=== PATIENT | male | born 1950 | race Caucasian/White ===

== ENCOUNTER 2018-10-30 01:48 | Inpatient (IN) | payer OTHER ==
[2018-10-30] VITALS (8 sets, daily range): BP systolic 86–106; BP diastolic 55–75
[~2018-10-30] VITALS: Ht 177.8 cm; Wt 70.3 kg
--- NOTE | 2018-10-30 02:00 | NUR ---
MD JOHN AT BEDSIDE FOR MSE
--- NOTE | 2018-10-30 02:05 | NUR ---
SHARIF YOUNGBLOOD AT BEDSIDE FOR IV ATTEMPTS
--- NOTE | 2018-10-30 02:11 | NUR ---
PT HAS DNR AND IS IN CUSTODY.
--- NOTE | 2018-10-30 02:12 | NUR ---
PT BIB PARAMEDICS FOR C/O BODYACHES AND SOB. PT HAS EXTENSIVE HX OF DIABETES, HTN, HIGH CHOLESTEROL, NEPHRECTOMY IN JUL 2018. NEPHROSTOMY BAG IN PLACE. PT HAS G TUBE IN LUQ. PT WAS AT HOSPITAL FOR SEPTIC SHOCH, ENCEPHALOPATHY, AND COLITITS AND WAS DISCHARGED BACK TO THE ALF ON 10/25 WITH ABX. THEY STATE HE WAS PLACED ON HOSPICE CARE UPON DISCHARGE. PT HAD KIDNEY REMOVED DUE TO METASTATIC CANCER. PT ALSO HAS HX OF AFIB. PT STATES THE CHRONIC BODY PAIN IS ALWAYS THERE FROM THE CANCER AND THAT ITS NOT WORSE THAN USUAL. PT HAS CLEAR BUT DIMINISHED BREATHE SOUNDS BILATERALLY. PT SKIN IS COOL AND PALE AND DRY. PT HAS WEAK PULSES IN BILATERAL UPPER EXTREMETIES. PT HAS WEAK PULSES IN DISTAL BILATERAL LOWER EXTREMETIES. BL LE ARE BROWN AND CRACKED WITH MULTIPLE ABRASIONS NOTED. BANDAGE TO R INNER FOOT. PT IS IN HANDCUFFS, AND AROUND THE FEET WELL. PT STATES THAT THE OXYGEN IS BURNING HIS NOSE. PT IS ALERT AND ORIENTED TO PERSON, YEAR, SITUATION, BUT NOT LOCATION. PT IS SPEAKING IN CLEAR FULL, BUT SLOW SENTENCES. PT HAS EQUAL AND UNLABORED CHEST RISE. PT FEELS COOL TO THE TOUCH. NO DISTRESS NOTED AT THIS TIME. CARIDAC MONITORS AND PLETH OX IN PLACE. GUARDS AT BEDSIDE.
--- NOTE | 2018-10-30 02:23 | NUR ---
LAB AT BEDSIDE AND GERIATRIC NURSE BORIS AT BEDSIDE FOR EKG
--- NOTE | 2018-10-30 02:32 | NUR ---
3 UNSUCCESSFUL IV ATTEMPTS BY FORD OLGUIN. 2 UNSUCCESSFUL ATTEMPTS BY HOWARD OLGUIN. SEVERAL UNSUCCESSFUL IV ATTEMPTS BY PARAMEDICS IN ROUTE. MD JOHN MADE AWARE AND WILL LOOK FOR AN ULTRASOUND IV
--- NOTE | 2018-10-30 02:38 | NUR ---
X RAY AT BEDSIDE
[2018-10-30 02:43] LABS: BASOPHIL % 0.7 % (0-2)
[2018-10-30 02:45] LABS: PLATELET COUNT 423 x10^3mcL (130-400); RED CELL DISTRIBUTION WIDTH 22.8 % (11.5-14.5)
--- NOTE | 2018-10-30 02:47 | NUR ---
MD JOHN AT BEDSIDE LOOKING FOR IV
[2018-10-30 02:49] LABS: CALCIUM 7.3 mg/dL (8.5-10.1); CARBON DIOXIDE 25.9 mmol/L (21-32); CREATININE SERUM 1.3 mg/dL (0.7-1.3); POTASSIUM SERUM 3.8 mmol/L (3.5-5.1)
--- NOTE | 2018-10-30 02:50 | NUR ---
PT WAS CHANGED INTO GOWN AND SKIN CHECKED. MULTIPLE SCABS ON PENILE SHAFT VISIBLE ALL HEALING AND SCABBED. THEY ARE CLOSED AND INTACT. PT HAS CLEAR SKIN TO THE BACK. NO REDNESS OR BREAKDOWN NOTED ON BACK OR SACRAL AREA
[2018-10-30 02:53] LABS: BILIRUBIN TOTAL 0.35 mg/dL (0.20-1.00); TOTAL PROTEIN, SERUM 6.3 g/dL (6.4-8.2)
[2018-10-30 02:54] LABS: ALBUMIN 1.7 g/dL (3.4-5.0)
[2018-10-30 02:57] LABS: acanthocyte (spur cell) 1+; ovalocyte/elliptocyte 1+; rbc morphology (normal/abnorm) ABNORMAL (NORMAL)
--- NOTE | 2018-10-30 03:38 | NUR ---
PT PROVIDED WARM BLANKETS FOR COMFORT AND REPOSITIONED. PT LIGHTS TURNED OFF. INCREASED BP OBSERVED AFTER 1/2 FLUID BOLUS IN. WILL CONTINUE TO MONITOR. OFFICERS AT BEDSIDE
--- NOTE | 2018-10-30 03:52 | NUR ---
PT REFUSED URINARY STRAIGHT CATHETER. MADE AWARE. NO NEW ORDERS AT THIS TIME
--- NOTE | 2018-10-30 04:09 | NUR ---
PT ATTEMPTING TO PROVIDE URINE SAMPLE AT THIS TIME AFTER COMPLETION OF L OF FLUID
--- NOTE | 2018-10-30 04:52 | NUR ---
PT CLEANED UP AFTER LIQUID BROWN BM X 1. BLANCHABLE REDNESS TO SACRAL AREA.
[2018-10-30] MEDS ORDERED: AMITRIPTYLINE H50 MG PO (05:11)
[2018-10-30] MEDS ORDERED: TOPROL XL25 MG PO (05:12)
[2018-10-30] MEDS ORDERED: ISOSORBIDE MONO30 MG PO (05:13)
[2018-10-30] MEDS ORDERED: FLOMAX0.4 MG PO (05:13)
[2018-10-30] MEDS ORDERED: ATORVASTATIN CA40 M1 PO (05:14)
[2018-10-30] MEDS ORDERED: GOOD SENSE OMEP20 MG PO (05:14)
[2018-10-30] MEDS ORDERED: METFORMIN HYDR500 M1 PO (05:14)
[2018-10-30] MEDS ORDERED: ELIQUIS5 MG PO (05:14)
--- NOTE | 2018-10-30 05:16 | NUR ---
attempted to call report. kerline states she is giving meds and will call back
--- NOTE | 2018-10-30 05:32 | NUR ---
REPORT CALLED TO ERICKA OLGUIN
--- NOTE | 2018-10-30 05:37 | NUR ---
PATIENT ARRIVED ONTO THE UNIT FROM ED VIA [facility]ERNEY ACCOMPANIED BY ED STAFF AND NURSE. C/O BODY ACHES, LOW BP AND O2, TACHY, AND INTERMITTENT CONFUSION. DX WITH HYPOXIA AND PNA. A/OX2 TO PERSON AND PLACE, CONFUSED AT TIMES. SPEECH IS CLEAR, ABLE TO MAKE NEEDS KNOWN. ABLE TO FOLLOW COMMANDS. BREATHING IS EVEN. NO RESP DISTRESS OR SOB NOTED. DIM LUNG SOUNDS ON THE BASES. DENIES CHEST PAIN. C/O 7/10 BODY ACHES. PULSES ARE WEAK (RADIAL AND PEDIAL). EXTREMITIES ARE COLD/DRY TO TOUCH. IV TO THE LFA, 20G. SL. PATENT AND INTACT. NO REDNESS OR SWELLING NOTED. GTUBE NOTED ON THE LEFT ABD. NEPHROSTOMY TUBE NOTED TO THE RIGHT SIDE OF THE ABD WITH NO OUTPUT. PATIENT STATES HE VOIDS WELL, URINAL AT BEDSIDE. LEFT EYEBROW HEALING LACERATION WITH STERI-STRIPS, CDI NOTED. RASHMI KNEE SCABS AND DISCOLORATION. BLE DISCOLORATION AND DRYNESS NOTED. BLANCHABLE REDNESS TO BUTTOCK/COCCYX NOTED, OPTIFOAM PLACED, CDI. PATIENT STATED HE HAS THOUGHOUTS OF HURTING HIMSELF. STATED "OF COURSE I DO, EVERY SINCE I GOT LOCKED UP." PATIENT DENIES PLAN AT THIS TIME. GUARDS AT BEDSIDE. ORIENTED PATIENT TO ROOM AND CALL LIGHT SYSTEM. COMFORT AND SAFETY MEASURE MAINTAINED. BED IS LOCKED AND IN THE LOWEST POSITION. SIDE RAILS UP X2. CALL LIGHT IS WITHIN REACH. WILL ENDORSE CARE TO DAY SHIFT RN
--- NOTE | 2018-10-30 07:40 | NUR ---
RECEIVED PT IN NO ACUTE DISTRESS. RESTING IN BED WITH EYES CLOSED BUT AROUSABLE. RESP EVEN AND UNLABORED ON RA AT THIS TIME. NO PAIN NOTED. IV TO VIK, NO REDNESS OR SWELLING NOTED. 2 CIM STAFF AT BEDSIDE. BED IN LOW POSITION, CALL LIGHT WITHIN REACH. WILL CONTINUE TO MONITOR.
--- NOTE | 2018-10-30 08:47 | NUR ---
PT'S BP 87/56 (MAP 66). ALSO SPOT CHECKED PT'S BLOOD GLUCOSE = 61. REPEAT = 62. PT SLIGHTLY DROWSY. DR. FINK NOTIFIED, RECEIVED TELEPHONE ORDER FOR ONE TIME IV BOLUS OF 500 ML NS. ALSO RECEIVED ORDER TO GIVE D50W FOR LOW BLOOD SUGAR, ACHS CHECKS, INSULIN SLIDING SCALE, AND REGULAR DIET. ORDERS READ BACK AND WILL BE CARRIED OUT.
--- NOTE | 2018-10-30 10:12 | NUR ---
RECHECKED BLOOD GLUCOSE = 89. PT MORE AWAKE, ASSISTED WITH EATING BREAKFAST AT THIS TIME. PT GIVEN OJ WITH 5 PACKETS OF SUGAR. WILL RECHECK BLOOD GLUCOSE AFTER 15 MINS.
--- NOTE | 2018-10-30 10:23 | NUR ---
BLOOD SUGAR 113, PT EATING BREAKFAST, TOLERATING WELL. DENIES N/V. AA/OX4. NO BENNETT. NO DIZZINESS. NO SOB. RR EVEN/UNLABORED. NO S/S OF ACUTE DISTRESS. CIM GUARDS AT BEDSIDE. BED IN LOW POSITION. CALL LIGHT WITHIN REACH. WILL ENDORSE TO PRIMARY RN MAX.
--- NOTE | 2018-10-30 11:50 | NUR ---
PATIENT REFUSED ECHOCARDIOGRAM -STATES THE DOCTORS KNOW HE HAS AN IRREGULAR RHYTHM-DOES NOT WANT IT
--- NOTE | 2018-10-30 13:11 | NUR ---
PT RESTING IN BED. NO ACUTE DISTRESS. SLEEPING BUT AROUSABLE. BREATHING EVEN AND UNLABORED ON 2L NC. R NEPHROSTOMY BAG WITH NO OUTPUT. PT STATES HE USES URINAL, NO URGE TO VOID AT THIS TIME. TOLERATED BREAKFAST WELL. CIM STAFF AT BEDSIDE. IV TO VIK WITH NO REDNESS OR SWELLING. CALL LIGHT WITHIN REACH. WILL CONTINUE TO MONITOR.
--- NOTE | 2018-10-30 13:11 | NUR ---
PT RESTING IN BED. NO ACUTE DISTRESS. SLEEPING BUT AROUSABLE. BREATHING EVEN AND UNLABORED ON 2L NC. RUQ T-TUBE DRAIN WITH NO OUTPUT. PT STATES HE USES URINAL, NO URGE TO VOID AT THIS TIME. TOLERATED BREAKFAST WELL. CIM STAFF AT BEDSIDE. IV TO VIK WITH NO REDNESS OR SWELLING. CALL LIGHT WITHIN REACH. WILL CONTINUE TO MONITOR.
--- NOTE | 2018-10-30 13:55 | NUR ---
DR. DEL ANGEL AT BEDSIDE, AWARE PT REFUSED ECHO.
--- NOTE | 2018-10-30 15:44 | NUR ---
PT HAD LARGE LOOSE BM, CLEANED AND REMINDED PT TO TURN AND REPOSITION IN BED. PT VERBALIZED UNDERSTANDING. CALL LIGHT WITHIN REACH. CIM STAFF AT BEDSIDE. WILL CONTINUE TO MONITOR.
[2018-10-30 16:36] LABS: microscopic required? YES; urine erythrocyte NEGATIVE (NEGATIVE)
--- NOTE | 2018-10-30 18:42 | NUR ---
PT SITTING UP IN BED EATING DINNER. NO ACUTE DISTRESS. BREATHING EVEN AND UNLABORED ON 2L NC. PT TOLERATING CCHO DIET WELL, NO COUGHING OR CHOKING NOTED AT THIS TIME. IVF INFUSING, NO REDNESS OR SWELLING TO VIK IV SITE. G TUBE IN PLACE. CHOLECYSTOSTOMY TO RUQ WITH NO DRAINAGE. VOIDING USING URINAL. FALL PRECAUTIONS. BED IN LOW POSITION, CALL LIGHT WITHIN REACH. CIM STAFF AT BEDSIDE. WILL ENDORSE TO ONCOMING SHIFT.
--- NOTE | 2018-10-30 19:10 | NUR ---
PT RECEIVED A/O X3 WITH EPISODES OF FORGETFULNESS, ABLE TO MAKE NEEDS KNOWN AND FOLLOW SIMPLE COMMANDS. TELE #4, DENIES CP/PRESSURE. WEAK PEDAL PULSES, NO EDEMA PRESENT. LUNG SOUNDS DIM TO RASHMI BASES, BREATHING IS EVEN AND UNLABORED ON AND OFF 2L NC/RA, DENIES SOB, NO RESP DISTRESS NOTED. ABD SOFT AND NONDISTENDED, BOWEL TONES ACTIVE X4 QUAD, DENIES N/V. GTUBE IN PLACE TO LUQ, CLAMPED, DRSG CDI. PER PT, "IT'S NOT BEING USED RIGHT NOW." CHOLECYSTOSTOMY TUBE TO RIGHT SIDE OF ABD, DRSG CDI, NO OUTPUT NOTED IN DRAINAGE BAG. VOIDS FREELY, URINAL AT BEDSIDE. GENERALIZED WEAKNESS, WHEELCHAIR AT BASELINE. STERISTRIPS TO LT EYEBROW, CDI. SCABS AND DISCOLORATION TO BLE. BLANCHABLE REDNESS TO BUTTOCKS, ZGUARD IN PLACE. PT DENIES ANY PAIN AT THIS TIME. IVF INFUSING WELL TO VIK, SITE FREE FROM REDNESS OR SWELLING. BED IN LOWEST SETTING, SIDE RAILS UP X2, CALL LIGHT WITHIN REACH. GUARD AT BEDSIDE, WILL CONT TO MONITOR.
--- NOTE | 2018-10-30 21:50 | NUR ---
DUE MEDS GIVEN, ASPIRATION PRECAUTIONS IN PLACE, PT TOLERATED WELL. NO COUGHING OR DISTRESS NOTED AFTER PT SWALLOWED PILLS. PT STATES, "I ONLY TAKE TWO MEDS AT A TIME." PT ALSO STATES, "BACK AT THE INSTITUTION, I AM ABLE TO EAT SOLID FOODS." NO ACUTE DISTRESS NOTED. CALL LIGHT WITHIN REACH. WILL CONT TO MONITOR.
--- NOTE | 2018-10-30 22:38 | NUR ---
PT INCONTINENT OF STOOL, DARK BROWN AND LOOSE. PT CLEANED AND REPOSITIONED. NO ACUTE DISTRESS NOTED. WILL CONT TO MONITOR.
--- NOTE | 2018-10-31 00:08 | NUR ---
DR THORNTON AT BEDSIDE FOR CONSULT, UPDATED DOCTOR. ALL QUESTION AND CONCERNS ADDRESSED. ORDERS RECEIVED.
--- NOTE | 2018-10-31 01:22 | NUR ---
PT RESTING IN BED WITH EYES CLOSED, BUT IS EASILY AROUSABLE. BREATHING IS EVEN AND UNLABORED, NO RESP DISTRESS NOTED. PT DENIES HAVING ANY PAIN AT THIS TIME. RBS-85, JUICE GIVEN. IVF INFUSING WELL, SITE WNL. NO ACUTE DISTRESS OBSERVED. BED ALARM ON, CALL LIGHT WITHIN REACH. GUARD AT BEDSIDE. WILL CONT TO MONITOR.
[2018-10-31 01:36] VITALS: BP 100/65
[2018-10-31 06:05] VITALS: BP 108/70
--- NOTE | 2018-10-31 07:20 | NUR ---
RECIEVED PT FROM NIGHT NURSE. PT IS LAYING DOWN IN BED WITH HOB UP. ECHO BEING COMPLETED AT BEDSIDE AT THIS TIME. PT LOOKS TO BE IN NO ACUTE DISTRESS AT THIS TIME. G TUBE AND CHOLECYSTOSTOMY PRESENT, DRESSING DRY AND INTACT WITH NO DRAINAGE PRESENT. IV SITE IS PATENT WITH NO SIGNS OF ERYTHEMA OR SWELLING, IV FLUIDS INFUSING. GUARD AT BEDSIDE. BED IN LOWEST POSITION. CALL LIGHT WITHIN REACH. WILL CONTINUE TO MONITOR.
--- NOTE | 2018-10-31 07:36 | NUR ---
PT SLEPT WELL THROUGHOUT THE EVENING. BREATHING IS EVEN AND UNLABORED, NO RESP DISTRESS NOTED. PT DENIES ANY PAIN AT THIS TIME. GTUBE IN PLACE. CHOLECYSTOSTOMY IN PLACE, NO OUTPUT NOTED. IVF INFUSING WELL TO VIK, SITE WNL. NO ACUTE CHANGES ENCOUNTERED DURING SHIFT. ALL NEEDS MET. GUARD AT BEDSIDE. CONTINUITY OF CARE ENDORSED TO THIERRY OLGUIN, ALL QUESTIONS AND CONCERNS ADDRESSED.
[2018-10-31 08:20] VITALS: BP 91/60
[2018-10-31 10:49] LABS: BASOPHIL % 0.2 % (0-2); PLATELET COUNT 368 x10^3mcL (130-400)
[2018-10-31 11:05] LABS: ALKALINE PHOSPHATASE 94 U/L (46-116); ALT/SGPT 19 U/L (16-63); AST/SGOT 16 U/L (15-37); BILIRUBIN TOTAL 0.34 mg/dL (0.20-1.00); CARBON DIOXIDE 25.7 mmol/L (21-32); CHLORIDE SERUM 104 mmol/L (98-107); CREATININE SERUM 0.9 mg/dL (0.7-1.3); GFR1 > 60 mL/min; GLUCOSE SERUM 86 mg/dL (74-106); SODIUM SERUM 139 mmol/L (136-145)
[2018-10-31 11:21] LABS: ALBUMIN 1.9 g/dL (3.4-5.0)
[2018-10-31 11:22] LABS: POTASSIUM SERUM 2.9 mmol/L (3.5-5.1)
[2018-10-31 11:38] VITALS: Ht 177.8 cm; Wt 70.3 kg
[2018-10-31 12:00] VITALS: BP 99/61
--- NOTE | 2018-10-31 12:52 | NUR ---
1. Recommend CCHO diet per MD orders. 2. Discontinue Ensure BID. (Pt dislikes ONS, and declined when RD offered) 3. Recommend MVI and megace QD.
--- NOTE | 2018-10-31 12:52 | NUR ---
Initial Nutrition Assessment- Dx: Hypoxia, PNA, Delirium PMHx: Renal Cell Cancer, CAD, HTN, DM, Atrial Fibrillation PSHx: nephrectomy Labs: Alb 1.7L, Ca 7.3L, HgA1c 7.3H, WBC 11.5H, H/H 11.6L/35L Meds: Ativan, Eliquis, D50%W, Humulin, Lipitor, Diet: CCHO diet w/ Ensure Plus 1 can BID x 1 day PO Intake: no record since admission. Pt currently on NPO per RN. Ht: 5'10 Wt: 155 lb, 70 kg BMI: 22.2 kg/m2 (Normal) IBW: 166 lb, 75 kg %IBW: 93 UBW: 160 lb Age: 67 yrs old/Male Food Allergies: NKFA Skin: Left Eyebrow w/ laceratioin, Bilateral knee w/ dry scab, abrasion, BLE w/ discoloration, blanchable redness to coccyx. Tono: 14 Edema: none GI: abd soft/flat, w/ active bowel sounds. Last BM 10/30/18, semi-liquid. Pt seen resting in bed w/ 1 guard at bedside. Pt reported of poor to fair appetite for 1 month now. He also reported 5 lb wt loss in 3 months. Pt also reported some difficulty chewing d/t dry mouth, RD offered saucy/moist foods. RD endorsed food preference in [employer]. Pt declined ONS when RD offered. RD encouraged pt to increase PO intake. Pt verbalized understanding. Pt is not yet meeting adequate nutrition but diet order remains appropriate. RD awaiting call back from MD for rec. Problem with: N: no V: no D: no C: no Problems with: Chewing: yes Swallowing: no Current appetite: poor-fair Recent wt change: 5 lb wt loss %wt change: 3% Vitamin/Supplement use: none Special diet at home: none Physical activity: none, pt w/ generalized weakness and uses a wheelchair Education: pt notified of current [facility] diet and was given diet restrictions. Pt denies any further education at this time. Estimated Nutritional Needs Based on actual body weight 70 kg Energy: 0917-9531 kcal/d (30-35 kcal/kg-for sepsis/Cancer) Protein: 105-140 g/d (1.5-2g/kg for sepsis) Fluid: 2274-5843 ml/d (1 ml/kcal-fluid balance) or per doctor Nutrition Diagnosis 1. Increased nutrient needs r/t metabolic demands AEB estimated calorie and protein needs for sepsis. Intervention 1. Recommend CCHO diet per MD orders. 2. Discontinue Ensure BID. 3. Recommend MVI and megace QD. Monitor/Evaluate Goal: PO intake at least 75% of estimated needs Monitor: PO intake, Labs, GI function F/U in 2-3 days as high risk 11/02-11/03
--- NOTE | 2018-10-31 13:14 | NUR ---
PT IS SITTING UP IN BED EATING DINNER. PT LOOOKS TO BE IN NO ACUTE DISTRESS AT THIS TIME. PT STATES WILL BE NEEDING PAIN MEDICATION SOON BUT NOT AT THIS TIME YET. BED IN LOWEST POSITION. IV SITE IS PATENT WITH NO SIGNS OF ERYTHEMA OR SWELLING, IV FLUIDS INFUSING. CALL LIGHT WITHIN REACH. GUARD AT BEDSIDE. WILL CONTINUE TO MONITOR.
--- NOTE | 2018-10-31 15:05 | NUR ---
PT COMPLAINING OF GENERALIZED PAIN 02/24. WILL MEDICATION PT ACCORDING TO EMAR. BED IN LOWEST POSITION. GUARD AT BEDSIDE. WILL CONTINUE TO MONITOR.
[2018-10-31 17:00] VITALS: BP 107/74
--- NOTE | 2018-10-31 18:56 | NUR ---
PT IS LAYING DOWN IN BED WITH HOB UP. RESPRIATIONS EVEN AND UNLABORED ON ROOM AIR. PT LOOKS TO BE IN NO ACUTE DISTRESS AT THIS TIME. IV SITE PATENT WITH NO SIGNS OF ERYTHEMA OR SWELLING. BED IN LOWEST POSITION. CALL LIGHT WITHIN REACH. WILL ENDORSE TO ONCOMING SHIFT.
--- NOTE | 2018-10-31 19:30 | NUR ---
RECEIVED PT IN BED RESTING. NO ACUTE RESPIRATORY DISTRESS NOTED.DENIES ANY PAIN AT THIS TIME.IVF INFUSING WELL.BED IN LOWEST POSITION,CALL LIGHT WITHIN REACH. WILL CONTINUE TO MONITOR.
--- NOTE | 2018-11-01 00:41 | NUR ---
PT ASLEEP. DENIES CP. BP: 99/59, HR:81 O2SAT 97% RA. WILL CONTINUE TO MONITOR.
--- NOTE | 2018-11-01 05:19 | NUR ---
P ASLEEP BUT EASILY AROUSABLE.NO SOB NOTED.NO C/O PAIN AT THIS TIME. BED IN LOWEST POSITION,CALL LIGHT WITHIN REACH. WILL CONTINUE TO MONITOR.
[2018-11-01 05:32] VITALS: BP 103/65
--- NOTE | 2018-11-01 06:42 | NUR ---
PT REFUSED LAB DRAW.
--- NOTE | 2018-11-01 07:26 | NUR ---
CARE ENDORSED TO DAY NURSE FORTINO.
--- NOTE | 2018-11-01 08:00 | NUR ---
RECIEVED PATIENT ALERT AND ORIENTED WITH DIMINISHED BREATH SOUNDS AND EATTING BREAKFAST AT THIS TIME. PATINET HAS GENERAL WEAKNESS AND IS WITH ASSIST INDICATED. URINATING WITH URINAL AND THE GUARDS AT BEDSIDE AND SECURITY MAINTAINED. DENIES PAIN AT THIS TIME AND HAS NO COMPLAINTS OF NAUSEAS. PATIENT WITH OLD G TUBE THAT IS CLAMPED AND A COLOSTOMY BAG IN PLACE. VITALS AT THIS TIME AT 99.3, 93, 18, 106/65, 95% ON ROOM AIR, PATIENT WITH HISTORY OF HTN, CAD, DM, AFIB, RENAL CELL CANCER, S/P NEPHRETOMY, CHRONIC LOW BACK PAIN AND SEPSIS. PATIENTHAS NOTED LBA FO H AHD OF 109/33, CA AT 7.0, AND ALBUMIN AT 6.2, AN XRAY OF THE CHEST ERESIDUAL ATELECTASIS AND OR FLUID AT THE LEFT LUNG BASE. NO COUGH AT THIS TIME AND ENCOURAGE TO DEEP BREATH OFTEN.
[2018-11-01 10:07] VITALS: BP 90/57
[2018-11-01 10:42] LABS: CALCIUM 6.8 mg/dL (8.5-10.1); CARBON DIOXIDE 26.2 mmol/L (21-32); CHLORIDE SERUM 106 mmol/L (98-107); CREATININE SERUM 0.9 mg/dL (0.7-1.3); GFR1 > 60 mL/min; GLUCOSE SERUM 88 mg/dL (74-106); SODIUM SERUM 138 mmol/L (136-145)
--- NOTE | 2018-11-01 11:33 | NUR ---
DOWN FOR T TUBE EXAM IN RADIOLOGY AT THIS TIME PATIENT HAD A SMALL STOOL AND WAS CLEANSED PRIOR TO TRANSFER. PATIENT SHOWS WEAKNESS AND NEEDED MODERATE TO MAX ASSIST TO GET TO THE WHEELCHAIR. AWAIING ARRIVAL BACK TO E FLOOR TO COMPLETE HIS VANCO INDICATED
--- NOTE | 2018-11-01 12:02 | NUR ---
RECEIVED POST THE CHOLANGIOGRAM OF THE T TUBE AND CALLED BACK CT WHO WANTS TO TO DO THE CT AND THEY CAME AND TOOK THE PATIENT FOR THE PROCEDURE. PATIENT IS SO FAR TOLERATEING WELL. GUARD AT BEDSIDE AND SECURITY HAS BEEN MAINTAINED.
[2018-11-01 13:04] VITALS: BP 116/76
[2018-11-01 17:24] VITALS: BP 96/63
--- NOTE | 2018-11-01 17:25 | NUR ---
PATIENT HAS BEEN ANXIOUS ON AND OFF ABOUT GOING OM TNE BEDPANA AND I NO ENTHUSIASTC ABOU TTHE BOWEL MEDIACTION AND STATES HE HAS HAD ENOUGH STOOL NOW. HE IS REFUSING THE MIRALAX ORDERED PATIENT DOES NOT WANT TO HAVE ANY FUTHER DIARRHEA AT THIS TIME. THE IV FLUIDS RUNNING WITH POTASSIUM AND THE PATIENT HAS BEEN TOLERATING WELL.
--- NOTE | 2018-11-01 18:39 | NUR ---
PATIENT REQUESTED PAIN MEDICATION AND GAVE MORPINE 1MG AND THE EIGHTEEN HUNDRED DOSING. WILL MONITO FOR EFFECTIVENESS. ATIENT AHS DISCOLORATION AND FLAKEY APPEARANCE TO THE LOWER EXTREMITES THE APPEARANCE OF POOR BLOOD BLOW NOTED. ADJUST THE SHACKLE PER THE PATIENT REQUEST.
--- NOTE | 2018-11-01 19:30 | NUR ---
RECEIVED PT FROM DAY SHIFT RN. PT IS AA&O X4 AND ABLE TO FOLLOW COMMANDS. PT RESTING IN BED. DENIES CHEST PAIN OR SHORTNESS OF BREATH ON ROOM AIR. NO USE OF ACCESSORY MUSCLE OR LABORED BREATHING ON ASSESSMENT. THERE IS LEFT ARM IV THAT IS CLEAN DRY AND INTACT AT THIS TIME. SAFETY MEASURES ARE IN PLACE. CALL LIGHT IS WITHIN REACH. WILL CONTINUE TO MONITOR.
[2018-11-01 20:51] VITALS: BP 97/60
--- NOTE | 2018-11-02 03:49 | NUR ---
PT RESTING IN BED WITH EYS CLOSED. NO FACIAL GRIMMACING. NO ACUTE SIGNS OF DISTRESS. NO LABORED BREATHING OR USE OF ACCESSORY MUSCLES. WILL MONITOR.
[2018-11-02 05:31] VITALS: BP 118/95
--- NOTE | 2018-11-02 06:32 | NUR ---
PT SLEPT THROUGHOUT THE NIGHT. PT DENIES ANY CHEST PAIN OR SHORTNESS OF BREATH AT THIS TIME. GUARD AT BEDSIDE. SAFETY MEASURES IN PLACE. WILL ENDORSE TO DAY SHIFT RN.
[2018-11-02 07:38] LABS: ALKALINE PHOSPHATASE 76 U/L (46-116); ALT/SGPT 13 U/L (16-63); AST/SGOT 19 U/L (15-37); BILIRUBIN TOTAL 0.3 mg/dL (0.20-1.00); CALCIUM 6.6 mg/dL (8.5-10.1); CARBON DIOXIDE 29.5 mmol/L (21-32); CHLORIDE SERUM 106 mmol/L (98-107); CREATININE SERUM 0.8 mg/dL (0.7-1.3); GFR1 > 60 mL/min; GLUCOSE SERUM 75 mg/dL (74-106); POTASSIUM SERUM 4.3 mmol/L (3.5-5.1); SODIUM SERUM 139 mmol/L (136-145)
[2018-11-02 07:39] LABS: BASOPHIL % 0.3 % (0-2); PLATELET COUNT 294 x10^3mcL (130-400)
[2018-11-02 07:40] LABS: ALBUMIN 1.3 g/dL (3.4-5.0); TOTAL PROTEIN, SERUM 5.1 g/dL (6.4-8.2)
[2018-11-02 07:41] LABS: RED CELL DISTRIBUTION WIDTH 24.1 % (11.5-14.5)
--- NOTE | 2018-11-02 08:00 | NUR ---
PATIENT RECIEVED ALERT AND ORIENTED AND SEEMS LESS CONFUSED TODAY. PATIENT WITH CLEAR BUT DIMINISHED BREATH SOUNDS AND PATIEN TAHS DISCOLORATION TO THE LOWER EXTREMITES. PATIENT HAS BEEN ON BEDREST AND IS WEAK AND WITH POOR ACTIVITY TOLERANCE. PATIENT REFUSD THE MIRALX THIS AM AND HAS BEEN HAVING LOOSE STOOLS. PATIVANESSA MORALESS BEEN IWTH AFIB AND AND BEEN WITH LOW BP AND HELD THE MEDICATIONS INDICATED DUE TO THIS. VITALS AT THIS TIME AT 97.7, 68, 18, 106/72, 99% ON ROOM AIR. PATIENT AHS BEEN WITH GUARD AT BEDSIDE AND SECURITY HAS BEEN MAINTAIN. =
[2018-11-02 08:20] LABS: ovalocyte/elliptocyte 1+; rbc morphology (normal/abnorm) ABNORMAL (NORMAL)
[2018-11-02 08:21] LABS: acanthocyte (spur cell) 1+; burr cell (echinocyte) 1+
[2018-11-02 10:17] VITALS: BP 106/72
--- NOTE | 2018-11-02 13:00 | NUR ---
TOLERATED DIET AND DENIES PAIN AT THIS TIME.
[2018-11-02 13:38] VITALS: BP 90/60
[2018-11-02 14:00] VITALS: BP 90/60
--- NOTE | 2018-11-02 14:35 | NUR ---
Follow-up Nutrition Assessment- Renzo Higgins Dx: Hypoxia, Pneumonia, Delirium Labs: Na 139, K 4.3, Alb 1.3L,Ca 6.6L, Hgb 10.1L, Hct 30L Meds: Dextrose 50% water Abbot, Flomax, Lanoxin, Lipitor, Miralax, Prilosec, Tums Diet: Regular PO intake: 10/3170-[id number], 10/31-Lunch CCHO-100%, 11/01-Breakfast Cardiac-40%, Dinner CCHO-40%, 11/02 Cardiac-100% Weights: 10/30-150-155#, 10/31-155# 11/02-Bed scale: 165# Skin: Wound w/ashlyn to the mid abdomen and some bruising Tono:14 Last BM: 11/01-2 BM Pt Visit: Pt was asleep when I entered the room. Global Supply Chain Director stated he had been aslepp for awhile. Only took a bed scale while in the room. Spoke with pt's RN Migdalia in order to gain some information about the patient. Nurse Migdalia stated that patient has PO intake of at least 50% and has no nausea, vomiting, constipation at this time. It was stated that he had a few loose stools. The nurse stated that his appetite is fair to good. The nurse states that when he is not feeling weak he will eat very well on his own. The nurse has not notice any weight changes. No education was given at this visit due to patient sleeping. Communication with Dr. Khurram Barrett: pt is currently on a regular diet, but due to A1c of 7.3 and history of diabetes recommended to change to [facility] diet and doctor was in agreement of diet change. Estimated Nutritional Needs based on Energy: 2100-2450kcal/kg (30-35kcal/kg) (based on sepsis and cancer) (Ongoing) Protein: 105-140g/kg (1.5-2.0g/kg) (based on sepsis) ( Ongoing) Fluid: 2100-2450ml/d (1ml/kcal-fluid balance) (Ongoing) Nutrition Diagnosis 1. Increased nutrient needs r/t metabolic demands aeb estimated calorie and protein needs for sepsis. (Ongoing) Intervention 1. Recommended changing the diet to [facility] Monitor/Evaluate Previous goal: PO intake at least 75% of estimated needs- has been met Goal: PO intake at least 75% of estimated needs Monitor: PO intake, Labs, GI function, tolerance of diet MR F/U 11/05-
--- NOTE | 2018-11-02 14:53 | NUR ---
Intervention 1. Recommended changing the diet to CCHO
--- NOTE | 2018-11-02 17:30 | NUR ---
PATIENT REQUESTED PAIN MEDICAITON AND GAVE MORPHINE FOR PAIN.WILL CONTINUE TO MONITOR FOR EFFECITVENESS.
[2018-11-02 18:11] VITALS: BP 96/63
--- NOTE | 2018-11-02 18:30 | NUR ---
PATIENT HAD GOOD RELIEF FROM THE MORPHINE AND IS RESTING QUIETLY AT THIS TIME.
--- NOTE | 2018-11-02 18:54 | NUR ---
PATIENT STATES HE HAS SOME RELIEF FROM THE HEARTBURN WITH ROSS GI COCKTAIL GIVEN. PATIEN TIS NOW ON PRILOSEC WELL. GAVE A DOSE OF MORPHINE OF FOR COMPLAINTS OF PAIN TO THE LOWER EXTREMITES. WILL CONTINUE TO MONITOR INDICATED.
--- NOTE | 2018-11-02 19:00 | NUR ---
RECEIVED PT FROM DAY SHIFT RN. PT IS AA&O X 4 AND ABLE TO FOLLOW COMMANDS. PT CURRENTLY RESTING IN BED WITH GUARD AT THE BEDSIDE. PT DENIES CHEST PAIN OR SHORTNESS OF BREATH AT THIS TIME ON ROOM AIR. THERE IS NO USE ACCESSORY MUSCLES OR LABORED BREATHING ON ASSESSMENT. IV CLEAN DRY AND INTACT AT THIS TIME. SAFETY MEASURES ARE IN PLACE. WILL CONTINUE TO MONITOR.
--- NOTE | 2018-11-02 19:04 | NUR ---
PATIENT RECIEVED ALERT AND ORIENTED AND SEEMS LESS CONFUSED TODAY. PATIENT WITH CLEAR BUT DIMINISHED BREATH SOUNDS AND PATIEN TAHS DISCOLORATION TO THE LOWER EXTREMITES. PATIENT HAS BEEN ON BEDREST AND IS WEAK AND WITH POOR ACTIVITY TOLERANCE. PATIENT REFUSD THE MIRALX THIS AM AND HAS BEEN HAVING LOOSE STOOLS. PATINET AHS BEEN IWTH AFIB AND AND BEEN WITH LOW BP AND HELD THE MEDICATIONS INDICATED DUE TO THIS. VITALS AT THIS TIME AT 97.7, 68, 18, 106/72, 99% ON ROOM AIR. PATIENT AHS BEEN WITH GUARD AT BEDSIDE AND SECURITY HAS BEEN MAINTAIN.
[2018-11-02 20:28] VITALS: BP 98/63
--- NOTE | 2018-11-03 03:39 | NUR ---
PT RESTING IN BED WITH EYES CLOSED. NO SIGNS OF DISTRESS OR FACIAL GRIMMACING NOTED. WILL CONTINUE TO MONITOR.
--- NOTE | 2018-11-03 05:16 | NUR ---
PT SLEPT THROUGHOUT THE SHIFT WITH GUARD AT BEDSIDE. PT DENIED CHEST PAIN OR SHORTNESS OF BREATH ON ROOM AIR. NO USE OF ACCESSORY MUSCLES OR LABORED BREATHING ON ASSESSMENT. SAFETY MEASURES ARE IN PLACE. WILL ENDORSE TO DAY SHIFT RN.
[2018-11-03 06:34] LABS: CALCIUM 6.9 mg/dL (8.5-10.1); CARBON DIOXIDE 27.8 mmol/L (21-32); CHLORIDE SERUM 107 mmol/L (98-107); GFR1 > 60 mL/min; GLUCOSE SERUM 81 mg/dL (74-106); SODIUM SERUM 140 mmol/L (136-145)
[2018-11-03 06:58] LABS: BASOPHIL % 0.5 % (0-2); PLATELET COUNT 288 x10^3mcL (130-400)
[2018-11-03 07:02] LABS: RED CELL DISTRIBUTION WIDTH 23.9 % (11.5-14.5)
--- NOTE | 2018-11-03 07:35 | NUR ---
RECEIVED PATIENT AWAKE/ALERT IN BED, NO ACUTE DISTRESS NOTED. PATIENT REPORT ALL OVER BODY PAIN AND 3/10 TOLERABLE. TELE #4 NOTED. IV TO VIK DRESSING LOOSENING, APPLIED NEW DRESSING AND SITE CDI. BILAT FOOT CUFFED TO BED NOTED. POC EXPLAINED. GUARD AT BEDSIDE. CALL LIGHT IN REACH.
[2018-11-03 09:00] VITALS: BP 101/66
--- NOTE | 2018-11-03 09:16 | NUR ---
PATIENT RESTING IN BED NO COMPLAIN, REPOSITION UP IN BED. HOB ELEVATED UPRIGHT. PO MEDS ADMINISTERED. BACTROBAN TO NASAL BILAT. PATIENT TOLERATED WELL. NEEDS ATTENDED. WILL BE BACK TO CLEAN PATIENT WITH HIBICLENS. PATIENT EATING HIS BREAKFAST. GUARD AT BEDSIDE.
--- NOTE | 2018-11-03 10:55 | NUR ---
PATIENT RESTING IN BED NO RESP DISTRESS NOTED, INCONT CARE PROVIDED FOR SMALL LOOSE BM, PATIENT ABLE TO TURN FROM SIDE TO SIDE TO HELP NURSE. INSTRUCT PATIENT TO STAY OM LT SIDE OFF BACK TO PREVENT SKIN BREAKDOWN, CALL LIGHT IN REACH. 1 GUARD REMAIN AT BEDSIDE.
[2018-11-03 11:34] VITALS: BP 101/66
[2018-11-03 12:32] VITALS: BP 114/62
--- NOTE | 2018-11-03 13:06 | NUR ---
PATIENT SAT UP IN BED EATING HIS DINNER, PO MEDS AND ZOSYN IVPB INFUSING TO VIK. HOTBED LEVER OPERATOR AT BEDSIDE PROVIDED JAM CARE TO PATIENT. DISCHARGE INSTRUCTION EXPLAINED TO PATIENT AND PATIENT SIGNED. PER GUARD ALREADY CALL FOR TRANSPORTATION, NO TIME YET. CALL LIGHT IN REACH.
--- NOTE | 2018-11-03 14:00 | NUR ---
PATIENT SITTING UP AT SIDE OF BED, REMOVED IV SITE TO VIK W/ CATHETER INTACT AND GAUZES APPLIED TO SITE. TELE #4 REMOVED AND GIVEN TO [place]. PATIENT BEING TRANSPORT BY 4 GUARDS WITH ALL BELONGINGS.
== END 2018-11-03 14:00 | disposition other institution (70) | DRG 871 ==
LOC: ED 01:48 → DU 04:18
PROVIDERS: Emergency Medicine; Internal Medicine; Internal Medicine Cardiovascular Disease; ADMIT Internal Medicine
DX: A41.9 Sepsis, unspecified organism (principal); J96.01 Acute respiratory failure with hypoxia; R65.21 Severe sepsis with septic shock; J69.0 Pneumonitis due to inhalation of food and vomit; C64.2 Malignant neoplasm of left kidney, except renal pelvis; C78.02 Secondary malignant neoplasm of left lung; N17.9 Acute kidney failure, unspecified; I10 Essential (primary) hypertension; Z66 Do not resuscitate; I48.91 Unspecified atrial fibrillation; N40.0 Benign prostatic hyperplasia without lower urinary tract symptoms; I25.10 Atherosclerotic heart disease of native coronary artery without angina pectoris; Z93.1 Gastrostomy status; Z90.5 Acquired absence of kidney; Z79.01 Long term (current) use of anticoagulants; Z79.84 Long term (current) use of oral hypoglycemic drugs; Z88.8 Allergy status to other drugs, medicaments and biological substances; E78.00 Pure hypercholesterolemia, unspecified; Z90.49 Acquired absence of other specified parts of digestive tract; D63.8 Anemia in other chronic diseases classified elsewhere; E66.01 Morbid (severe) obesity due to excess calories; Z71.3 Dietary counseling and surveillance; E87.6 Hypokalemia; K52.9 Noninfective gastroenteritis and colitis, unspecified; R62.7 Adult failure to thrive
CPT/HCPCS: 82962; 83880; J1160; J1956; J2270; J2543; J3370; J3480; J3490; J7030; J7040; J7050; P9047; Q0092; Q9967